=== PATIENT | male | born 1960 | race Caucasian/White ===

== ENCOUNTER 2023-07-10 05:53 | Day surgery (SDC) | payer BC ==
[~2023-07-10] VITALS: Ht 182.9 cm; Wt 95.2 kg
[~2023-07-10 05:53] MED LIST: LR 1,000 ML IV SCH; Ondansetron 4 MG/2 ML VIAL IV PRN
[2023-07-10] MEDS ORDERED: PRINIVIL20 MG PO (06:13)
[2023-07-10] MEDS ORDERED: HCTZ 25MG TAB25 MG PO (06:13)
[2023-07-10] MEDS ORDERED: LIPITOR20 MG PO (06:13)
[2023-07-10] MEDS ORDERED: PHARMASSURE ZIN50 MG PO (06:14)
[2023-07-10] MEDS ORDERED: PEPCID 20MG TAB20 MG PO (06:14)
[2023-07-10] MEDS ORDERED: B COMPLEX #11 TA1 PO (06:15)
[2023-07-10] MEDS ORDERED: VITAMINC1000TA PO (06:15)
--- NOTE | 2023-07-10 06:36 | NUR ---
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
[2023-07-10 06:37] VITALS: BP 118/87; PULSE 76; TEMP 97.8
[2023-07-10] MEDS ORDERED: Lidocaine PF 2% (20 MG/ML) 5 ML VIAL ONE (07:37)
[2023-07-10 08:15] VITALS: BP 105/78; PULSE 70; TEMP 97.1
--- NOTE | 2023-07-10 08:15 | NUR ---
PATIENT AMBULATED TO CHAIR WITH STEADY GAIT, ASSIST OF 2. ALERT AND AWAKE. DENIES PAIN, NAUSEA AND SHORTNESS OF BREATH. BREATHING REGULAR AND UNLABORED ON ROOM AIR. SKIN WARM AND DRY. IV IN PLACE. NURSE HANDOFF COMPLETED IN ROOM. SEE CHART FOR VITAL SIGNS. PER REPORT, PATIENT SPOKE WITH REGARDING PROCEDURE FINDINGS FOLLOWING PROCEDURE. PATIENT HAD CRANBERRY JUICE AND BUCK CRACKERS. BOTH FOOD AND DRINK TOLERATED WELL. CALL LIGHT IN REACH.
[2023-07-10 08:30] VITALS: BP 121/81; PULSE 58
[2023-07-10 08:45] VITALS: BP 125/80; PULSE 60
--- NOTE | 2023-07-10 08:51 | NUR ---
0844: DISCHARGE TEACHING COMPLETED WITH PRINTED EDUCATION AND INSTRUCTIONS SENT HOME WITH PATIENT. PATIENT VERBALIZED UNDERSTANDING OF TEACHING. 0848: IV REMOVED. GAUZE AND COBAN PLACED OVER SITE. 0851: PATIENT DISCHARGED HOME WITH [facility].
== END 2023-07-10 08:51 | disposition home or self-care (01) ==
LOC: SDCO 05:53
DX: Z12.11 Encounter for screening for malignant neoplasm of colon (principal); D12.2 Benign neoplasm of ascending colon; D12.3 Benign neoplasm of transverse colon; D12.5 Benign neoplasm of sigmoid colon
CPT/HCPCS: J2704; J7120